=== PATIENT | male | born 2005 | race Caucasian/White ===

== ENCOUNTER 2023-03-23 11:46 | Emergency (ER) | payer BC, SELFPAY ==
[2023-03-23 11:53] VITALS: BP 105/65; PULSE 72; RESP 16; TEMP 36.9; O2SAT 100
--- NOTE | 2023-03-23 12:00 | ED.URI ---
HPI - URI/Sore Throat General Chief Complaint: Upper Respiratory Infection Stated Complaint: Sore Throat Time Seen by Provider: 03/23/23 12:00 Source: patient Mode of arrival: ambulatory Limitations: no limitations History of Present Illness HPI Narrative: 17-year-old male presents with complaint of swollen tonsils, sore throat for 2 days. Woke up with 102 F fever this morning. Positive nausea, chills and body aches. All systems reviewed and negative except as noted above. Related Data Home Medications Medication Instructions Recorded Confirmed escitalopram oxalate 10 mg tablet 15 mg PO DAILY 03/23/23 03/23/23 Allergies Allergy/AdvReac Type Severity Reaction Status Date / Time No Known Allergies Allergy Verified 03/23/23 11:55 Review of Systems Review of Systems: CONSTITUTIONAL: Reports fever, chills, or sweats. EYES: Denies visual changes, redness, or discharge. ENT: Denies rhinorrhea, congestion. Reports sore throat. Denies otalgia. CARDIOVASCULAR: Denies chest pain, palpitations, or edema. RESPIRATORY: Denies cough or dyspnea. GASTROINTESTINAL: Denies abdominal pain. Reports nausea. Denies vomiting, or diarrhea. GENITOURINARY: Denies dysuria or hematuria. SKIN: Denies rash or itching. MUSCULOSKELETAL: Denies back pain, joint pain, or myalgia. NEUROLOGIC: Denies headache, numbness, or weakness. PSYCHIATRIC: Denies anxiety or depression. All other systems reviewed are negative, except as documented in HPI. PMFSH Comments At time of signature, agree with nursing past medical, surgical, social and family history. There is no relevant family history pertinent to the presenting complaint. Exam Narrative: GENERAL: This is a well-nourished, well-developed patient, in no apparent distress. HEAD: normocephalic, atraumatic. EYES: PERRL. Sclera clear/white. Vision is grossly intact. EARS: External ears normal, auditory canals clear and without drainage, TMs normal without perforation. Hearing grossly intact. NOSE: External nose normal with no obvious nasal discharge, nares without redness, no rhinorrhea. THROAT: Mucous membranes moist, erythematous, tonsils 1+ bilaterally with exudates NECK: Neck supple, non-tender without lymphadenopathy, masses or thyromegaly. CARDIOVASCULAR: Regular rate and rhythm without murmurs, gallops, or rubs. RESPIRATORY: Clear to auscultation. Breath sounds equal bilaterally. No wheezes, rales, or rhonchi. SKIN: warm, Dry, intact with no suspicious lesions or rash, good texture and turgor. NEURO: awake, alert, and oriented to person, place and time. There were no obvious focal neurologic abnormalities. EXTREMITIES: No joint tenderness, effusion, or edema noted. Course Course Level of Care: Express Care Visit Vital Signs Vital signs: Vital Signs Temperature 36.9 C 03/23/23 11:53 Pulse Rate 72 03/23/23 11:53 Respiratory Rate 16 03/23/23 11:53 Blood Pressure 105/65 03/23/23 11:53 Pulse Oximetry 100 03/23/23 11:53 Oxygen Delivery Room Air 03/23/23 11:53 Temperature 36.9 C 03/23/23 11:53 Pulse Rate 72 03/23/23 11:53 Respiratory Rate 16 03/23/23 11:53 Blood Pressure 105/65 03/23/23 11:53 Pulse Oximetry 100 03/23/23 11:53 Oxygen Delivery Room Air 03/23/23 11:53 Reviewed MDM - URI/Sore Throat MDM Narrative Medical decision making narrative: Patient is aware of diagnosis, understands and agrees to treatment plan. Anticipatory guidance given. Patient agrees to follow-up as directed and is aware of reasons to seek care at the emergency department. Portions of this record may have been created with voice recognition software Negative rapid strep. Due to patient's symptoms and exam findings I am prescribing an antibiotic today. Differential Diagnosis Differential diagnosis: Likely pharyngitis Lab Data Labs: Strep Screen Presumptive Negative *(Reference Range: Negative)
== END 2023-03-23 12:24 | disposition home or self-care (01) ==
PROVIDERS: Emergency Provider Nurse Practitioner Family; PCP Pediatrics
DX: J03.90 Acute tonsillitis, unspecified (principal)
CPT/HCPCS: 87081; 87880; 99213; G0463

== ENCOUNTER 2023-10-24 14:35 | Emergency (ER) | payer BC, SELFPAY ==
[2023-10-24 14:37] VITALS: BP 116/78; PULSE 78; RESP 18; TEMP 36.7; O2SAT 98
--- NOTE | 2023-10-24 15:49 | ED.GENADULT ---
HPI - General Adult General Chief complaint: Unspecified <Sofy Marie October, Last Filed: 10/24/23 15:54> Stated complaint: bleeding from surgical site <Sofy Marie October, - Last Filed: 10/24/23 15:54> Time Seen by Provider: 10/24/23 15:50 <Sofy Marie October, - Last Filed: 10/24/23 15:54> Focused HPI: Luis Pérez is a 17 y/o male with reports of having a bilateral tonsillectomy on Tuesday at surgical center in [place] and then today he had some mucus/ drainage and then had bleeding to his tonsils he felt a scab come off on the right side. He states that there was a lot of blood that came off of it at around 1330. GENERAL: Well-appearing, well-nourished, and in no acute distress. HEAD: Normocephalic, atraumatic. CHEST: Clear to auscultation. ?No respiratory distress. HEART: Regular rate and rhythm.? NEURO: ?Alert and oriented x3. Patient screened in triage and initial orders placed.? ?Additional care and disposition to be based upon?diagnostic testing and treatment. <Sofy Marie October, Last Filed: 10/24/23 15:54> Related Data Home medications: Home Medications Medication Instructions Recorded Confirmed escitalopram oxalate 10 mg tablet 15 mg PO DAILY 03/23/23 03/23/23 <Sofy Marie October, - Last Filed: 10/24/23 15:54> Allergies/adverse reactions: Allergies Allergy/AdvReac Type Severity Reaction Status Date / Time No Known Allergies Allergy Verified 10/24/23 14:35 <Sofy Marie October, - Last Filed: 10/24/23 15:54> Review of Systems Review of Systems: CONSTITUTIONAL: Denies fever ENT: Reports sore throat <Katy Armstrong PA-C - Last Filed: 10/24/23 17:44> All systems reviewed & are unremarkable except as noted in HPI and below <Katy Armstrong PA-C - Last Filed: 10/24/23 17:44> PMFSH Past Medical History Medical History: Medical History (Updated 10/24/23 @ 17:34 by Katy Armstrong PA-C) History of depression <Sofy Marie October, [employer] COMP[employer]SULTANT - Last Filed: 10/24/23 15:54> Social History Social History: Social History (Updated 10/24/23 @ 17:28 by Katy Armstrong PA-C) Substance use: never <Sofy Torres, [employer] COMP[employer] CONSULTANT - Last Filed: 10/24/23 15:54> Exam Narrative: GENERAL: Well-appearing, well-nourished, and in no acute distress. HEAD: Normocephalic, atraumatic. EYES: EOMI. ENT: Nares clear, no rhinorrhea or epistaxis. Mucous membranes moist. Oropharynx without active bleeding in the tonsillar beds. No trismus NECK: Supple. No adenopathy or masses. CHEST: Clear to auscultation. No respiratory distress. No wheezes rales or rhonchi HEART: Regular rate and rhythm. No murmur heard. Normal peripheral pulses. EXTREMITIES: Normal range of motion. No edema. SKIN: Warm, dry, no rash. NEURO: No focal deficits. Alert and oriented x3. PSYCH: Normal mood and affect <Katy Armstrong PA-C - Last Filed: 10/24/23 17:44> Course Course Emergency Course: Patient is no longer bleeding <Katy Armstrong PA-C - Last Filed: 10/24/23 17:44> Consultations Consultation #1: Spoke with Dr. Childress about patient and workup. Patient stable for discharge, will give return precautions <Katy Armstrong PA-C - Last Filed: 10/24/23 17:44> Date: 10/24/23 <Katy Armstrong PA-C - Last Filed: 10/24/23 17:44> Vital Signs Vital signs: Vital Signs Temperature 98.1 F 10/24/23 14:37 Pulse Rate 78 10/24/23 14:37 Respiratory Rate 18 10/24/23 14:37 Blood Pressure 116/78 10/24/23 14:37 Pulse Oximetry 98 10/24/23 14:37 Oxygen Delivery Room Air 10/24/23 14:37 Temperature 98.1 F 10/24/23 14:37 Pulse Rate 78 10/24/23 14:37 Respiratory Rate 19 10/24/23 16:21 Blood Pressure 116/78 10/24/23 14:37 Pulse Oximetry 100 10/24/23 16:21 Oxygen Delivery Room Air 10/24/23 14:37 <Sofy Torres, [employer] COMP[employer] CONSULTANT - Last Filed: 10/24/23 15:54> Vital Signs Temperature 98.1 F 10/24/23 14:37 Pulse Rate 78 10/24/23 14:37 Respirat
[2023-10-24 16:06] LABS: Basophils Percent Auto 0.3 % (0.2-1.2); Eosinophils Absolute Auto 0.1 K/mm3 (0-0.3); Eosinophils Percent Auto 1.1 % (0-4.4); Hemoglobin 14.1 g/dL (14.0-18.0); Immature Granulocyte Absolute 0.03 K/mm3 (0.00-0.031); Immature Granulocyte Percent A 0.3 % (0-0.5); Lymphocytes Absolute Auto 1.54 K/mm3 (0.9-3.2); Lymphocytes Percent Auto 15.6 % (18.3-44.2); Mean Corpuscular HGB Conc 34.4 g/dl (32-36); Mean Corpuscular Hemoglobin 32.8 pg (26-34); Mean Corpuscular Volume 95.3 fl (80-100); Mean Platelet Volume 9.4 fl (7.4-10.4); Monocytes Absolute Auto 0.9 K/mm3 (0.1-0.6); Monocytes Percent Auto 9.1 % (2.6-8.5); Neutrophils Absolute Auto 7.3 K/mm3 (1.3-6.7); Neutrophils Percent Auto 73.6 % (45.5-73.1); Platelet Count Result 276 k/mm3 (150-375); Red Cell Distribution Width 11.6 % (11.5-14.5); White Blood Count 9.9 K/mm3 (4.5-10.0)
[2023-10-24 16:19] LABS: Anion Gap 8 mmol/L (4-12); Blood Urea Nitrogen 13 mg/dL (8-21); Calcium 9.4 mg/dL (8.9-10.7); Carbon Dioxide 25 mmol/L (22-30); Chloride 102 mmol/L (98-107); Estimated CRCL calculation 104 ml/min; Estimated Glomerular Filt Rate > 60; Glucose 92 mg/dL (65-110); Potassium 4.2 mmol/L (3.4-5.0); Sodium 135 mmol/L (134-143)
[2023-10-24 16:21] VITALS: RESP 19; O2SAT 100
== END 2023-10-24 17:45 | disposition home or self-care (01) ==
PROVIDERS: Nurse Practitioner Family; Emergency Provider Physician Assistant; PCP Pediatrics
DX: J95.830 Postprocedural hemorrhage of a respiratory system organ or structure following a respiratory system procedure (principal); F32.A Depression, unspecified
CPT/HCPCS: 36415; 80048; 85025; 99283

== ENCOUNTER 2024-10-27 10:32 | Emergency (ER) | payer BC, SELFPAY ==
[2024-10-27 10:39] VITALS: BP 121/58; PULSE 62; RESP 16; TEMP 36.5; O2SAT 100
--- NOTE | 2024-10-27 10:47 | ED_ITS ---
HPI - Epistaxis General Chief complaint: Epistaxis Stated complaint: Nose Bleed Time Seen by Provider: 10/27/24 10:48 Source: patient Mode of arrival: ambulatory Limitations: no limitations History of Present Illness HPI Narrative: 18 yo M presents with c/o intermittent nosebleeds for the past week lasting about 10 mins and then stopping. Has appt with ENT in 2 wks. pt mother concerned he may need antibiotic. All systems reviewed and negative except as noted above. Related Data Allergies Allergy/AdvReac Type Severity Reaction Status Date / Time No Known Allergies Allergy Verified 10/27/24 10:37 Review of Systems Review of Systems: CONSTITUTIONAL: Denies fever, chills, or sweats. EYES: Denies visual changes, redness, or discharge. ENT: Denies rhinorrhea, congestion, sore throat, or otalgia. Reports nosebleed from right nare CARDIOVASCULAR: Denies chest pain, palpitations, or edema. RESPIRATORY: Denies cough or dyspnea. GASTROINTESTINAL: Denies abdominal pain, nausea, vomiting, or diarrhea. GENITOURINARY: Denies dysuria or hematuria. SKIN: Denies rash or itching. MUSCULOSKELETAL: Denies back pain, joint pain, or myalgia. NEUROLOGIC: Denies headache, numbness, or weakness. PSYCHIATRIC: Denies anxiety or depression. All other systems reviewed are negative, except as documented in HPI. [facility] Past Medical History Medical History (Updated 10/28/24 @ 00:02 by Shanelle Keane) History of depression Social History Social History (Updated 10/24/23 @ 17:28 by Katy Armstrong PA-C) Substance use: never Comments At time of signature, agree with nursing past medical, surgical, social and family history. There is no relevant family history pertinent to the presenting complaint. Exam Narrative: GENERAL: This is a well-nourished, well-developed patient, in no apparent distress. HEAD: normocephalic, atraumatic. EYES: PERRL. Sclera clear/white. Vision is grossly intact. EARS: External ears normal, auditory canals clear and without drainage, TMs normal without perforation. Hearing grossly intact. NOSE: External nose normal with no obvious nasal discharge, right ear is erythematous with mild swelling and yellowish color lesion/infection with scant drainage. Left ear normal. No active bleeding THROAT: Mucous membranes moist, posterior pharynx clear. NECK: Neck supple, non-tender without lymphadenopathy, masses or thyromegaly. CARDIOVASCULAR: Regular rate and rhythm without murmurs, gallops, or rubs. RESPIRATORY: Clear to auscultation. Breath sounds equal bilaterally. No wheezes, rales, or rhonchi. SKIN: warm, Dry, intact with no suspicious lesions or rash, good texture and turgor. NEURO: awake, alert, and oriented to person, place and time. There were no obvious focal neurologic abnormalities. EXTREMITIES: No joint tenderness, effusion, or edema noted. Course Course Level of Care: Express Care Visit Vital Signs Vital signs: Vital Signs Temperature 36.5 C 10/27/24 10:39 Pulse Rate 62 10/27/24 10:39 Respiratory Rate 16 10/27/24 10:39 Blood Pressure 121/58 L 10/27/24 10:39 Pulse Oximetry 100 10/27/24 10:39 Temperature 36.5 C 10/27/24 10:39 Pulse Rate 62 10/27/24 10:39 Respiratory Rate 16 10/27/24 10:39 Blood Pressure 121/58 L 10/27/24 10:39 Pulse Oximetry 100 10/27/24 10:39 Reviewed MDM - Epistaxis MDM Narrative Medical decision making narrative: Treat with due to erythema yellowish drainage to right ear. Patient with ENT in 2 weeks. Patient is well-appearing nontoxic. Discharge Plan Discharge Clinical Impression: Nostril infection, Epistaxis Patient Disposition: Home Condition: Stable Instructions: Antibiotic Form, Nosebleed (ED) Additional Instructions: Take antibiotic as prescribed. Use an [id number] nasal spray daily such as Flonase or Nasacort. Use an [id number] nasal moisturizing spray daily. Place cool mist humidifier in bedroom where you sleep. Follow-up with learning and development specialist at scheduled appointment. Patient Language: Tajik Prescriptions: New amoxicillin-pot clavulanate 875-125 mg tablet 1 tablet PO Q12H 7 Days Qty: 14 0RF Follow-up/Referrals: Carolyn Chadwick MD [Primary Care Provider] - Time of Disposition: 10:55
== END 2024-10-27 10:58 | disposition home or self-care (01) ==
PROVIDERS: Emergency Provider Nurse Practitioner Family; PCP Pediatrics
DX: J34.89 Other specified disorders of nose and nasal sinuses (principal); R04.0 Epistaxis
CPT/HCPCS: 99213; G0463